=== PATIENT | male | born 1970 | race Caucasian/White ===

== ENCOUNTER 2021-06-29 22:55 | Emergency (ER) | payer BC ==
[2021-06-29] MEDS ORDERED: Acetaminophen/HYDROcodone 325-5 MG Tab PO ONE (22:56)
[2021-06-29] MEDS ORDERED: Cyclobenzaprine 10 MG Tab PO ONE (22:56)
--- NOTE | 2021-06-29 23:58 | ER ---
DATE SEEN: 06/29/2021 CHIEF COMPLAINT: Back pain. HISTORY OF PRESENT ILLNESS: This is a pleasant 50-year-old male with back pain that started today. He was snow blowing most of the day, but no specific injury. The pain is lower back with no radiation. Moderate to severe, sudden onset. He has taken his 's prescription of tramadol with no improvement. CURRENT MEDICATIONS: Reviewed. REVIEW OF SYSTEMS: No urinary symptoms, fever, or chills. PHYSICAL EXAMINATION: GENERAL: He is not in distress. VITAL SIGNS: Normal. MUSCULOSKELETAL: Low back, no obvious swelling. There is hypertonicity of the muscles and tenderness in the lumbar spine. NEUROLOGIC: Normal with brisk bilateral symmetric reflexes. Normal strength. IMPRESSION: Acute lumbar strain. TREATMENT: 1. Hydrocodone 1 tablet every 6 hours p.r.n. 2. Flexeril 10 mg at night. Follow up PCP on Thursday. /[id number] LOIS/ELIUD
== END 2021-06-29 23:25 | disposition home or self-care (01) ==
LOC: FB.ED 22:55 → SUPCPDRO 22:55 → FB.ED 23:25
DX: S39.012A Strain of muscle, fascia and tendon of lower back, initial encounter (principal); X50.1XXA Overexertion from prolonged static or awkward postures, initial encounter
CPT/HCPCS: 99283; A9270

== ENCOUNTER 2021-11-19 19:47 | Emergency (ER) | payer BC ==
[2021-11-19] MEDS ORDERED: Ketorolac 30 MG/ML SDV IM ONE (20:18)
[2021-11-19] MEDS ORDERED: Amoxicillin 500 MG Cap PO ONE (20:18)
== END 2021-11-19 21:00 | disposition home or self-care (01) ==
LOC: FB.ED 19:47
DX: K04.7 Periapical abscess without sinus (principal); E11.9 Type 2 diabetes mellitus without complications; Z79.84 Long term (current) use of oral hypoglycemic drugs
CPT/HCPCS: 96372; 99281; 99282; A9270-GY; J1885